=== PATIENT | female | born 1960 | race Caucasian/White ===

== ENCOUNTER 2018-03-13 11:35 | Observation (INO) | payer OTHER ==
[~2018-03-13] VITALS: Ht 170.2 cm; Wt 63.6 kg
[~2018-03-13 11:35] MED LIST: LEVO100T7 PO; LIDO5DIS10 TD; MULT-506 PO; OMEG10007 PO; PREG200C PO; RSTOPS OP; SERT-234 PO; TRAM-10 PO
[2018-03-13 12:25] LABS: BASO % 0.1 %; BASO ABS # 0.01 K/uL (0-0.2); EOS % 0.2 %; EOS ABS # 0.02 K/uL (0-0.5); HEMATOCRIT 39.3 % (37-47); HEMOGLOBIN 13.1 g/dL (12.0-16.0); IG# 0.03 K/uL (0.00-0.02); LYMPH % 7.7 %; LYMPH ABS # 0.95 K/uL (1.2-3.4); MEAN CELL VOLUME 91.2 fL (80-100); MEAN CORPUSCULAR HEMOGLOBIN 30.4 pg (25-34); MEAN CORPUSCULAR HGB CONC 33.3 g/dl (32-36); MEAN PLATELET VOLUME 9.7 fL (7.4-10.4); MONO % 7.8 %; MONO ABS # 0.97 K/uL (0.11-0.59); NEUT ABS # 10.43 K/uL (1.4-6.5); PLATELET COUNT 204 K/uL (130-400); RED CELL DISTRIBUTION WIDTH SD 43.6 fL (36.4-46.3); WHITE BLOOD COUNT 12.41 K/uL (4.8-10.8)
[2018-03-13 12:48] LABS: ALBUMIN 3.8 gm/dl (3.4-5.0); CALCIUM 8.9 mg/dl (8.5-10.1); CREATININE 0.67 mg/dl (0.60-1.20); POTASSIUM 3.8 mmol/L (3.5-5.1); TOTAL PROTEIN 7.3 gm/dl (6.4-8.2)
[2018-03-13] MEDS ORDERED: [UNRECOGNIZED DRUG - OTHER] OP (12:55)
[2018-03-13] MEDS ORDERED: RTNACR2515 TOP (12:55)
[2018-03-13] MEDS ORDERED: TIZA4CAP PO (12:55)
[2018-03-13] MEDS ORDERED: IMD/2 PO (12:55)
[2018-03-13] MEDS ORDERED: CYCL10TA6 PO (12:55)
[2018-03-13] MEDS ORDERED: ALPR-411 PO (12:55)
[2018-03-13] MEDS ORDERED: LDDP5 TD (12:55)
[2018-03-13] MEDS ORDERED: TRAM-10 PO (12:55)
[2018-03-13] MEDS ORDERED: CYCL0.052 OP (12:55)
[2018-03-13] MEDS ORDERED: DULO60CA44 PO (12:55)
[2018-03-13] MEDS ORDERED: LEVO75TA5 PO (12:55)
[2018-03-13] MEDS ORDERED: PREG200C PO (12:55)
[2018-03-13] MEDS ORDERED: SUCR1TAB29 PO (12:55)
[2018-03-13] MEDS ORDERED: ALBU18002 INH (12:55)
[2018-03-13] MEDS ORDERED: EFIN1SOL TOP (12:55)
[2018-03-13] MEDS ORDERED: METH500T3 PO (12:55)
[2018-03-13] MEDS ORDERED: ONDANSETRON INJ 2 MG/ML 2 ML VIAL IV STA ×2 (13:05→14:33)
[2018-03-13] MEDS ORDERED: SODIUM CHLORIDE 0.9% 1000ML 1,000 ML IV STA ×2 (13:05→17:05)
[2018-03-13] MEDS ORDERED: MoRPHine SULFATE 4 MG/ML 1 ML CARP\\VIAL IV STA ×3 (13:05→17:07)
[2018-03-13] MEDS ORDERED: OPTIRAY 320 IV PRN (15:00)
--- NOTE | 2018-03-13 16:23 | DIAGNOSTIC IMAGING REPORT ---
ABD/PELVIS IV AND ORAL CONT CLINICAL HISTORY: 57 years-old Female presenting with rlq pain. TECHNIQUE: Multidetector CT of the abdomen and pelvis was performed after the administration of oral and intravenous contrast. IV contrast: 114 mL of Optiray 320. A dose lowering technique was used consistent with the principles of ALARA (as low as reasonably achievable). COMPARISON: Abdomen MR from 05/13/2011. CT DOSE (mGy.cm): The estimated cumulative dose is 288.84 mGy.cm. FINDINGS: Sack Sorter topogram: Unremarkable. Lung bases: Minimal basilar opacities, likely atelectasis. Trace emphysema. Few calcified granuloma. Normal heart size. No pericardial or pleural effusion. Liver: Normal morphology. No liver lesion. Patent hepatic vasculature. Biliary: No intrahepatic or extrahepatic biliary ductal dilatation. Normal gallbladder. Pancreas: Normal. Spleen: Normal. Adrenal glands: Normal. Kidneys and ureters: Normal. No hydronephrosis. Bladder: The configuration of the bladder suggests ligamentous laxity. Bladder otherwise normal. Pelvic organs: Normal. Bowel: Apparent wall thickening near the hepatic flexure (series 3 image 195). This may be due to underdistention and/or peristalsis. No surrounding inflammatory change. Mild wall thickening of the terminal ileum likely secondary to the dilated and inflamed appendix. The proximal portion of the appendix is poorly delineated. Mucosal integrity cannot be confirmed. However, no extraluminal foci of gas in this region or adjacent fluid collection. No bowel obstruction. Peritoneal cavity: No free fluid or intraperitoneal gas. Lymph nodes: No enlarged lymph nodes in the abdomen or pelvis. Vasculature: Atherosclerosis of the normal caliber abdominal aorta. IVC patent. The left gonadal vein is dilated measuring up to 8 mm with multiple prominent pelvic varices suggesting pelvic congestion physiology. Abdominal wall: Normal. Musculoskeletal: Normal. IMPRESSION: 1. Findings consistent with acute appendicitis. The proximal portion of the appendix is poorly delineated and mucosal integrity cannot be confirmed. No evidence of radha perforation or abscess. No other complication is apparent. The report will be called/faxed according to standard departmental protocol. Electronically signed by: Fritz Etienne M.D. 03/13/2018 4:22 PM Dictated Date/Time: 03/13/2018 4:12 PM
[2018-03-13] MEDS ORDERED: CEFOXITIN 2000MG/60 ML D5W IV STA (17:05)
--- NOTE | 2018-03-13 17:39 | History and Physical ---
History & Physical Date & Time of Service: Mar 13, 2018 at 17:33 Chief Complaint: Pain Rt Side,Chills,Low Grade Fever Primary Care Physician: Kelsey Diehl D.O. History of Present Illness 57-year-old female presented to the emergency department with right lower quadrant pain. Pain woke her from sleep at 4:00 this morning. Pain started in the right lower quadrant, she had associated anorexia and nausea but no vomiting. She does report some low-grade fevers and some chills. She states it feels somewhat like a ruptured ovarian cyst she had as a teenager. No personal or family history of inflammatory bowel disease. She had a colonoscopy at age 50 that was a poor prep but otherwise unremarkable, she was recommended for a follow-up colonoscopy of 55 but has not completed this. Denies any prior abdominal surgeries. She is not on any blood thinners. Past Medical/Surgical History Medical Problems: Fibromyalgia, hypothyroidism Family History No pertinent family history Social History Smoking Status: Former Smoker (Quit 12 years ago) Allergies Coded Allergies: No Known Allergies (Verified , 03/13/18) Home Medications Scheduled Albuterol Sulfate (Proair Respiclick), 2 PUFF INH QID Cyclosporine (Ophth) (Restasis), 2 DROPS OP DAILY Duloxetine Hcl (Cymbalta), 60 MG PO DAILY Efinaconazole (Jublia), 1 APPLN TOP DAILY Levothyroxine Sodium (Levothyroxine Sodium), 75 MCG PO DAILY Lidocaine (Lidocaine), 1 PATCH TD DAILY Methylcellulose (Laxative) (Citrucel), 1,000 MG PO DAILY Pregabalin (Lyrica), 400 MG PO DAILY Sucralfate (Carafate), 1-2 GM PO QID Scheduled PRN Alprazolam (Xanax), 0.5 MG PO BID PRN for Anxiety Cyclobenzaprine Hcl (Flexeril), 10 MG PO DAILY PRN for Muscle Spasms Fluorometholone (Fml), 1 APPLN OP DAILY PRN for PRN Loperamide Hcl (Imodium), 2 MG PO UD PRN for Diarrhea Tizanidine (Zanaflex), 4 MG PO Q8 PRN for Muscle Spasms Tramadol (Ultram), 50 MG PO Q6 PRN for Pain Tretinoin (Retin-A), 1 APPLN TOP UD PRN for PRN Review of Systems 10 point review of systems negative except as above Physical Exam Vital Signs Date Time Temp Pulse Resp B/P (MAP) Pulse Ox O2 Delivery O2 Flow Rate FiO2 03/13/18 17:00 37.8 88 18 115/66 97 Room Air 03/13/18 15:08 78 16 109/63 97 Room Air 03/13/18 13:19 75 16 129/67 97 Room Air 03/13/18 11:44 36.4 75 18 104/66 96 Room Air General Appearance: WD/WN, + moderate distress Head: normocephalic, atraumatic Eyes: normal inspection, PERRL, EOMI, sclerae normal ENT: normal ENT inspection, hearing grossly normal Neck: supple, no adenopathy, thyroid normal, no JVD, trachea midline Respiratory/Chest: chest non-tender, lungs clear, normal breath sounds, no respiratory distress, no accessory muscle use Cardiovascular: regular rate, rhythm, no edema, no gallop, no JVD, no murmur, normal peripheral pulses Abdomen/GI: normal bowel sounds, soft, no organomegaly, no pulsatile mass, + tenderness (Tenderness to palpation in the right lower quadrant right lower pelvis with localized guarding. 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, no motor/sensory deficits, alert, normal mood/affect, normal reflexes, oriented x 3 Skin: normal color, warm/dry, + rash Lymphatic: no adenopathy Diagnostics Laboratory Results Results Past 24 Hours Test 03/13/18 12:10 03/13/18 14:20 Range/Units White Blood Count 12.41 4.8-10.8 K/uL Red Blood Count 4.31 4.2-5.4 M/uL Hemoglobin 13.1 12.0-16.0 g/dL Hematocrit 39.3 37-47 % Mean Corpuscular Volume 91.2 80-100 fL Mean Corpuscular Hemoglobin 30.4 25-34 pg Mean Corpuscular Hemoglobin Concent 33.3 32-36 g/dl Platelet Count 204 130-400 K/uL Mean Platelet Volume 9.7 7.4-10.4 fL Neutrophils (%) (Auto) 84.0 % Lymphocytes (%) (Auto) 7.7 % Monocytes (%) (Auto) 7.8 % Eosinophils (%) (Auto) 0.2 % Basophils (%) (Auto) 0.1 % Neutrophils # (Auto) 10.43 1.4-6.5 K/uL Lymphocytes # (Auto) 0.95 1.2-3.4 K/uL Monocytes # (Auto) 0.97 0.11-0.59 K/uL Eosinophils # (Auto) 0.02 0-0.5 K/uL Basophils # (Auto) 0.01 0-0.2 K/uL RDW Standard Deviation 43.6 36.4-46.3 fL RDW Coefficient of Variation 13.0 11.5-14.5 % Immature Granulocyte % (Auto) 0.2 % Immature Granulocyte # (Auto) 0.03 0.00-0.02 K/uL Sodium Level 139 136-145 mmol/L Potassium Level 3.8 3.5-5.1 mmol/L Chloride Level 105 98-107 mmol/L Carbon Dioxide Level 28 21-32 mmol/L Anion Gap 6.0 3-11 mmol/L Blood Urea Nitrogen 18 7-18 mg/dl Creatinine 0.67 0.60-1.20 mg/dl Est Creatinine Clear Calc Drug Dose 90.1 ml/min Estimated GFR () 113.1 Estimated GFR (Non- 97.6 BUN/Creatinine Ratio 26.1 10-20 Random Glucose 119 70-99 mg/dl Calcium Level 8.9 8.5-10.1 mg/dl Total Bilirubin 0.5 0.2-1 mg/dl Aspartate Amino Transf (AST/SGOT) 17 15-37 U/L Alanine Aminotransferase (ALT/SGPT) 19 12-78 U/L Alkaline Phosphatase 74 45-117 U/L Total Protein 7.3 6.4-8.2 gm/dl Albumin 3.8 3.4-5.0 gm/dl Globulin 3.5 2.5-4.0 gm/dl Albumin/Globulin Ratio 1.1 0.9-2 Lipase 102 73-393 U/L Urine Color YELLOW Urine Appearance CLOUDY CLEAR Urine pH 8.5 4.5-7.5 Urine Specific [place] 1.011 1.000-1.030 Urine Protein NEG NEG Urine Glucose (UA) NEG NEG Urine Ketones NEG NEG Urine Occult Blood NEG NEG Urine Nitrite NEG NEG Urine Bilirubin NEG NEG Urine Urobilinogen NEG NEG Urine Leukocyte Esterase TRACE NEG Urine WBC (Auto) 1-5 0-5 /hpf Urine RBC (Auto) 0-4 0-4 /hpf Urine Hyaline Casts (Auto) 1-5 0-5 /lpf Urine Epithelial Cells (Auto) 20-30 0-5 /lpf Urine Bacteria (Auto) NEG NEG Diagnostic Radiology ABD/PELVIS IV AND ORAL CONT CLINICAL HISTORY: 57 years-old Female presenting with rlq pain. TECHNIQUE: Multidetector CT of the abdomen and pelvis was performed after the administration of oral and intravenous contrast. IV contrast: 114 mL of Optiray 320. A dose lowering technique was used consistent with the principles of ALARA (as low as reasonably achievable). COMPARISON: Abdomen MR from 05/13/2011. CT DOSE (mGy.cm): The estimated cumulative dose is 288.84 mGy.cm. FINDINGS: Server Support Technician topogram: Unremarkable. Lung bases: Minimal basilar opacities, likely atelectasis. Trace emphysema. Few calcified granuloma. Normal heart size. No pericardial or pleural effusion. Liver: Normal morphology. No liver lesion. Patent hepatic vasculature. Biliary: No intrahepatic or extrahepatic biliary ductal dilatation. Normal gallbladder. Pancreas: Normal. Spleen: Normal. Adrenal glands: Normal. Kidneys and ureters: Normal. No hydronephrosis. Bladder: The configuration of the bladder suggests ligamentous laxity. Bladder otherwise normal. Pelvic organs: Normal. Bowel: Apparent wall thickening near the hepatic flexure (series 3 image 195). This may be due to underdistention and/or peristalsis. No surrounding inflammatory change. Mild wall thickening of the terminal ileum likely secondary to the dilated and inflamed appendix. The proximal portion of the appendix is poorly delineated. Mucosal integrity cannot be confirmed. However, no extraluminal foci of gas in this region or adjacent fluid collection. No bowel obstruction. Peritoneal cavity: No free fluid or intraperitoneal gas. Lymph nodes: No enlarged lymph nodes in the abdomen or pelvis. Vasculature: Atherosclerosis of the normal caliber abdominal aorta. IVC patent. The left gonadal vein is dilated measuring up to 8 mm with multiple prominent pelvic varices suggesting pelvic congestion physiology. Abdominal wall: Normal. Musculoskeletal: Normal. IMPRESSION: 1. Findings consistent with acute appendicitis. The proximal portion of the appendix is poorly delineated and mucosal integrity cannot be confirmed. No evidence of radha perforation or abscess. No other complication is apparent. The report will be called/faxed according to standard departmental protocol. Impression Assessment and Plan (1) Acute appendicitis with localized peritonitis 57-year-old female with acute appendicitis and localized peritonitis. No evidence of perforation at this time. We discussed her options, and she elects to proceed with surgery. Plan for laparoscopic appendectomy Risks of the procedure were discussed to include but are not limited to bleeding , infection, conversion to open, need for future more extensive surgery, damage to surrounding structures, normal appendix, and the risks of anesthesia Mefoxin preop Admit for observation to [facility] postop Resuscitation Status VTE Prophylaxis Will order VTE Prophylaxis: Yes Reason for no VTE drug order: Treatment not indicated
[2018-03-13] MEDS ORDERED: BUPIVACAINE 0.5 % 5 MG/1 ML PF 10ML VIAL ONE (17:41)
[2018-03-13] MEDS ORDERED: FENTANYL CITRATE INJ 50 MCG/1 ML 2 ML VIAL ONE (17:54)
[2018-03-13] MEDS ORDERED: MIDAZOLAM HCL 1 MG/ML 2ML VIAL ONE (17:54)
[2018-03-13] MEDS ORDERED: DEXAMETHASONE SOD INJ 4 MG/ML VIAL ONE (17:56)
[2018-03-13] MEDS ORDERED: ROCURONIUM BROMIDE 10 MG/ML 5 ML VIAL ONE (17:56)
[2018-03-13] MEDS ORDERED: LARYING-O-JET KIT (LTA) ONE (17:56)
[2018-03-13] MEDS ORDERED: GLYCOPYRROLATE INJ 0.2 MG/ML VIAL ONE (17:56)
[2018-03-13] MEDS ORDERED: NEOSTIGMINE METHYLSULFATE 5 MG/5 ML SYR ONE (17:56)
[2018-03-13] MEDS ORDERED: PROPOFOL IV EMULSION 10 MG/ML 20 ML VIAL ONE (17:56)
[2018-03-13] MEDS ORDERED: ONDANSETRON INJ 2 MG/ML 2 ML VIAL ONE (17:56)
[2018-03-13] MEDS ORDERED: LIDOCAINE HCL 2% 2 ML VIAL (20MG/ML) ONE (17:56)
[2018-03-13] MEDS ORDERED: ONDANSETRON INJ 2 MG/ML 2 ML VIAL IV PRN ×2 (18:15→19:15)
[2018-03-13] MEDS ORDERED: HYDROmorphone INJ 1 MG/ML SYR IV PRN (18:15)
[2018-03-13] MEDS ORDERED: ATROPINE SULFATE 0.1 MG/ML 5ML SYR IV PRN (18:15)
[2018-03-13] MEDS ORDERED: EpHEDrine SULFATE INJ 50 MG/ML AMP IV PRN (18:15)
[2018-03-13] MEDS ORDERED: ACETAMINOPHEN 1000 MG/100 ML IV IV ONE (18:23)
[2018-03-13] MEDS ORDERED: SUCCINYLCHOLINE CHLORIDE 20 MG/ML 10 ML VIAL IV ONE (18:41)
--- NOTE | 2018-03-13 19:04 | [facility] Post Operative Brief Note ---
Immediate Operative Summary Operative Date Mar 13, 2018. Pre-Operative Diagnosis Acute Appendicitis Post-Operative Diagnosis Acute Appendicitis Procedure(s) Performed Laparoscopic Appendectomy Surgeon Dr. Ying Web Merchant Surgeon(s) None Estimated Blood Loss 3cc Findings Consistent with Post-Op Diagnosis Acute, nonperforated, suppurative appendicitis Specimens A. Appendix Drains None Anesthesia Type General Complication(s) none Disposition Accompanied Pt To Recover: no Disposition: Recovery Room / PACU
--- NOTE | 2018-03-13 19:06 | [facility] Operative Report ---
Operative Report Operative Date Mar 13, 2018. Pre-Operative Diagnosis Acute Appendicitis Post-Operative Diagnosis Acute appendicitis Procedure(s) Performed Laparoscopic appendectomy Surgeon Dr. Ying Shot Peen Operator Surgeon(s) None Estimated Blood Loss 3cc Findings Acute, postoperative, nonperforated appendicitis Specimens A. Appendix Drains None Anesthesia General Complication(s) None Disposition Recovery Room / PACU Indications 57-year-old female presented with signs and symptoms of appendicitis, confirmed by CT scan. Plan for laparoscopic appendectomy. The risks of the procedure were discussed, all questions were answered, and the patient agreed to proceed with surgery as planned. Description of Procedure The patient was properly identified, consented, and taken to the operating room where she was placed in the supine position. General endotracheal anesthesia was induced. SCDs and a safety belt were placed. Preoperative antibiotics were administered. A Flores catheter was not placed. The patient's abdomen was prepped and draped in the standard sterile fashion. Surgical timeout was performed and all parties were in agreement that this was the correct patient and procedure to be performed and we continued as planned. A curvilinear infraumbilical incision was made with electrocautery and deepened down to the fascia with blunt dissection. The base of the umbilicus was grasped with a Alexandra and elevated towards the ceiling. An incision was made in the midline fascia with a knife and entry into the peritoneum was confirmed. Stay suture of 0 Vicryl was placed and a Sotelo trocar was inserted. The abdomen was insufflated with carbon dioxide which the patient tolerated without incident. The laparoscope was inserted and no damage from initial trocar placement was noted, no gross abnormalities were noted within the 4 quadrants the abdomen. 5 mm ports were then placed in the left lower quadrant with care not to damage the epigastric vessels, and in the suprapubic midline with care not to damage the bladder. The patient was placed in Trendelenburg position and rotated towards the left. The small bowel was swept away from the right lower quadrant. The cecum and right colon were adherent to the abdominal wall. The base of the cecum was grasped with an atraumatic grasper exposing the appendix. The appendix was moderately inflamed and there was no evidence of perforation. There was a small amount of turbid fluid in the pelvis which was suctioned at the conclusion of the case. A window was created between the base of the appendix and the mesoappendix. A canseco loaded endoscopic stapler was then used to divide the appendix at its base. A canseco load was then used to divide the mesoappendix. Hemostasis was good. The appendix was placed in an Endo Catch bag and removed through the umbilical port site. The right lower quadrant and pelvis was irrigated and hemostasis was found to be good. 5 mm trochars were removed under direct visualization and the abdomen was allowed to collapse. The umbilical port site fascia was closed with 0 Vicryl suture. The wound was irrigated, and the skin of all ports was closed with 4-0 Monocryl subcuticular sutures. Dermabond was placed over the wounds. The patient was extubated in the operating room and taken to the PACU where she recovered without apparent incident. All sponge, instrument and needle counts were correct at the conclusion of the procedure. The patient tolerated the procedure well. I attest to the content of the Intraoperative Record and any orders documented therein. Any exceptions are noted below.
[2018-03-13] MEDS ORDERED: CYCLOBENZAPRINE HCL 10 MG TAB PO PRN (19:15)
[2018-03-13] MEDS ORDERED: OXYCODONE/ACETAMINOPHEN 5-325 TAB PO PRN ×2 (19:15)
[2018-03-13] MEDS ORDERED: MoRPHine SULFATE 2 MG/ML CARP IV PRN (19:15)
[2018-03-13] MEDS ORDERED: ALPRAZOLAM 0.5 MG TAB PO PRN (19:15)
[2018-03-13] MEDS ORDERED: LOPERAMIDE HCL 2 MG CAP PO PRN (19:15)
[2018-03-13] MEDS: FENTANYL CITRATE INJ 50 MCG/1 ML 2 ML VIAL IV PRN ×4 (19:18→19:38)
--- NOTE | 2018-03-13 19:47 | Anesthesiology Progress Note ---
Anesthesia Post Op Note Date & Time Mar 13, 2018 at 19:47 Vital Signs Pain Intensity: 2 Vital Signs Past 12 Hours Date Time Temp Pulse Resp B/P (MAP) Pulse Ox O2 Delivery O2 Flow Rate FiO2 03/13/18 19:39 81 16 97 03/13/18 19:39 82 16 03/13/18 19:37 104/58 03/13/18 19:34 88 18 94 03/13/18 19:34 87 18 03/13/18 19:33 85 14 03/13/18 19:33 85 14 95 03/13/18 19:32 112/59 03/13/18 19:28 94 22 03/13/18 19:28 94 22 100 03/13/18 19:26 120/64 03/13/18 19:23 88 20 03/13/18 19:23 88 20 98 03/13/18 19:22 89 19 121/66 98 03/13/18 19:22 89 19 03/13/18 19:17 89 25 100 03/13/18 19:17 89 25 03/13/18 19:16 125/64 03/13/18 19:13 109/62 03/13/18 19:12 36.7 88 12 109/62 (82) 98 Oxymask 10 03/13/18 19:12 89 14 03/13/18 19:12 88 14 99 03/13/18 17:49 81 18 123/61 98 Room Air 03/13/18 17:00 37.8 88 18 115/66 97 Room Air 03/13/18 15:08 78 16 109/63 97 Room Air 03/13/18 13:19 75 16 129/67 97 Room Air 03/13/18 11:44 36.4 75 18 104/66 96 Room Air Notes Mental Status: alert / awake / arousable, participated in evaluation Pt Amnestic to Procedure: Yes Nausea / Vomiting: adequately controlled Pain: adequately controlled Airway Patency, RR, SpO2: stable & adequate BP & HR: stable & adequate Hydration State: stable & adequate Anesthetic Complications: no major complications apparent
[2018-03-13] MEDS ORDERED: IV FLUIDS COMPLETED PRN (20:00)
[2018-03-13 20:10] VITALS: BP 94/54; PULSE 78; TEMP 36.9; O2SAT 94
[2018-03-13 20:15] VITALS: BP 94/54; PULSE 78; TEMP 36.9; O2SAT 94
[2018-03-13 20:31] VITALS: Ht 170.2 cm; Wt 63.6 kg
[2018-03-13] MEDS: MoRPHine SULFATE 4 MG/ML 1 ML CARP\\VIAL IV PRN (21:05)
[2018-03-13 21:10] VITALS: BP 94/57; PULSE 79; TEMP 36.6; O2SAT 96
[2018-03-13] MEDS: KETOROLAC TROMETHAMINE 15 MG/ML VIAL IV SCH (22:00)
[2018-03-13] MEDS: LACTATED RINGER'S 1000ML 1,000 ML IV SCH (22:13)
[2018-03-13] MEDS: CEFOXITIN IV 2,000 MG in DEXTROSE 5% 50ML 50 ML IV SCH (22:39)
[2018-03-13 23:10] VITALS: BP_SYST 88; BP_SYST 90; BP_DIAS 55; BP_DIAS 56; PULSE 76; TEMP 36.6; O2SAT 96
--- NOTE | 2018-03-13 23:33 | Discharge Instructions ---
Discharge Instructions Date of Service Mar 13, 2018. Admission Reason for Admission: Acute Appendicitis With Localized Peritonitis Discharge Discharge Diagnosis / Problem: Acute appendicitis with localized peritonitis Discharge Goals Goal(s): Decrease discomfort, Improve function Activity Recommendations Activity Limitations: as noted below Lifting Limitations: no more than 10 pounds, until after follow-up appointment Exercise/Sports Limitations: until after follow-up appointment May Resume Sexual Activity: after follow-up appointment Shower/Bathe: tomorrow (please do not soak/scrub incisions) Driving or Machine Use: resume 3 days after discharge (Please do not drive while using narcotic pain medication) . Instructions / Follow-Up Instructions / Follow-Up You have surgical glue covering your incision sites. Please allow this to fall off on its own. Follow-up with Dr. Ying in 1-2 weeks. Please contact our office at [phone] to schedule an appointment if you have not done so already. Please contact our office with any further questions or concerns. [facility] General Surgery [address] [place] [address] Current Hospital Diet Patient's current hospital diet: Full Liquid Diet Discharge Diet Recommended Diet: Regular Diet Procedures Procedures Performed: Laparoscopic Appendectomy Pending Studies Studies pending at discharge: yes List of pending studies: pathology Medical Emergencies . Who to Call and When: Medical Emergencies: If at any time you feel your situation is an emergency, please call 911 immediately. . Non-Emergent Contact Non-Emergency issues call your: Primary Care Provider, Surgeon Call Non-Emergent contact if: you have a fever, temperature is above 101.5, your pain is not controlled, your pain is worsening, wound has increased drainage, wound has increased redness . "Provider Documentation" section prepared by Rivas Collier. . [place] Drug Monitoring Program Search Results: patient reviewed within database, no issues identified
[2018-03-14] MEDS: MoRPHine SULFATE 4 MG/ML 1 ML CARP\\VIAL IV PRN (00:15)
[2018-03-14 03:37] VITALS: BP 85/51; PULSE 68; TEMP 36.7; O2SAT 94
[2018-03-14] MEDS: KETOROLAC TROMETHAMINE 15 MG/ML VIAL IV SCH ×2 (04:00→09:29)
[2018-03-14] MEDS: CEFOXITIN IV 2,000 MG in DEXTROSE 5% 50ML 50 ML IV SCH (05:11)
[2018-03-14 05:50] VITALS: BP 90/51
[2018-03-14] MEDS ORDERED: LEVOTHYROXINE 75 MCG TAB PO SCH (06:00)
[2018-03-14] MEDS: LACTATED RINGER'S 1000ML 1,000 ML IV SCH (06:04)
[2018-03-14] MEDS ORDERED: NURSING VERBAL MED ORDER ONE (07:45)
[2018-03-14 07:57] VITALS: BP 92/58; PULSE 60; TEMP 36.2; O2SAT 96
[2018-03-14 08:48] VITALS: O2SAT 96
[2018-03-14] MEDS ORDERED: LIDODERM (LIDOCAINE) PATCH 5% TD SCH (09:00)
[2018-03-14] MEDS ORDERED: PREGABALIN 100 MG CAP PO SCH (09:00)
[2018-03-14] MEDS ORDERED: DULOXETINE HCL 60 MG CAP PO SCH (09:00)
[2018-03-14] MEDS ORDERED: OXYC-57 PO (09:20)
[2018-03-14 09:55] VITALS: BP 92/58; PULSE 60; TEMP 36.2; O2SAT 96
--- NOTE | 2018-03-14 09:58 | Surgery Progress Note ---
Surgery Progress Note Date of Service Mar 14, 2018. Subjective Post OP Day: 1 + ambulating, No bowel movement, No flatus, No nausea, No vomiting Patient ambulating on own from bathroom to bed as I entered the room. Reports that she is still having pain- surgical pain now. Objective Vital Signs: Date Time Temp Pulse Resp B/P (MAP) Pulse Ox O2 Delivery O2 Flow Rate FiO2 03/14/18 08:48 96 Room Air 03/14/18 07:57 36.2 60 18 92/58 (69) 96 Room Air 03/14/18 05:50 90/51 (64) 03/14/18 03:37 36.7 68 15 85/51 (62) 94 Room Air 03/14/18 00:00 Room Air 03/13/18 23:10 36.6 76 15 90/56 (67) 96 Room Air 88/55 (66) 03/13/18 21:10 36.6 79 16 94/57 (69) 96 Nasal Cannula 2.0 03/13/18 20:15 36.9 78 16 94/54 94 Nasal Cannula 2.0 03/13/18 20:10 94 Nasal Cannula 2.0 03/13/18 20:10 36.9 78 16 94/54 (67) 94 Nasal Cannula 2.0 03/13/18 19:58 81 20 97 03/13/18 19:58 81 20 03/13/18 19:56 96/52 03/13/18 19:53 82 18 98 03/13/18 19:53 82 18 03/13/18 19:51 102/57 03/13/18 19:48 86 19 98 03/13/18 19:48 86 19 03/13/18 19:47 89/53 03/13/18 19:45 80 13 03/13/18 19:45 78 13 97 03/13/18 19:42 37.3 90 16 101/49 (62) 97 Nasal Cannula 2 03/13/18 19:41 101/49 03/13/18 19:40 79 10 03/13/18 19:40 76 10 97 03/13/18 19:39 81 16 97 03/13/18 19:39 82 16 03/13/18 19:37 104/58 03/13/18 19:34 88 18 94 03/13/18 19:34 87 18 03/13/18 19:33 85 14 03/13/18 19:33 85 14 95 03/13/18 19:32 112/59 03/13/18 19:28 94 22 03/13/18 19:28 94 22 100 03/13/18 19:26 120/64 03/13/18 19:23 88 20 03/13/18 19:23 88 20 98 03/13/18 19:22 89 19 121/66 98 03/13/18 19:22 89 19 03/13/18 19:17 89 25 100 03/13/18 19:17 89 25 03/13/18 19:16 125/64 03/13/18 19:13 109/62 03/13/18 19:12 36.7 88 12 109/62 (82) 98 Oxymask 10 03/13/18 19:12 89 14 03/13/18 19:12 88 14 99 03/13/18 17:49 81 18 123/61 98 Room Air 03/13/18 17:00 37.8 88 18 115/66 97 Room Air 03/13/18 15:08 78 16 109/63 97 Room Air 03/13/18 13:19 75 16 129/67 97 Room Air 03/13/18 11:44 36.4 75 18 104/66 96 Room Air General Appearance: WD/WN, no apparent distress Abdomen: non distended, soft, + pertinent finding (pain in right lower abdomen - pain that brought patient to ED has resolved. Now surgical pain. ) Incision(s): clean, dry, intact, no erythema, no drainage Laboratory Results: Results Past 24 Hours Test 03/13/18 12:10 03/13/18 14:20 Range/Units White Blood Count 12.41 4.8-10.8 K/uL Red Blood Count 4.31 4.2-5.4 M/uL Hemoglobin 13.1 12.0-16.0 g/dL Hematocrit 39.3 37-47 % Mean Corpuscular Volume 91.2 80-100 fL Mean Corpuscular Hemoglobin 30.4 25-34 pg Mean Corpuscular Hemoglobin Concent 33.3 32-36 g/dl Platelet Count 204 130-400 K/uL Mean Platelet Volume 9.7 7.4-10.4 fL Neutrophils (%) (Auto) 84.0 % Lymphocytes (%) (Auto) 7.7 % Monocytes (%) (Auto) 7.8 % Eosinophils (%) (Auto) 0.2 % Basophils (%) (Auto) 0.1 % Neutrophils # (Auto) 10.43 1.4-6.5 K/uL Lymphocytes # (Auto) 0.95 1.2-3.4 K/uL Monocytes # (Auto) 0.97 0.11-0.59 K/uL Eosinophils # (Auto) 0.02 0-0.5 K/uL Basophils # (Auto) 0.01 0-0.2 K/uL RDW Standard Deviation 43.6 36.4-46.3 fL RDW Coefficient of Variation 13.0 11.5-14.5 % Immature Granulocyte % (Auto) 0.2 % Immature Granulocyte # (Auto) 0.03 0.00-0.02 K/uL Sodium Level 139 136-145 mmol/L Potassium Level 3.8 3.5-5.1 mmol/L Chloride Level 105 98-107 mmol/L Carbon Dioxide Level 28 21-32 mmol/L Anion Gap 6.0 3-11 mmol/L Blood Urea Nitrogen 18 7-18 mg/dl Creatinine 0.67 0.60-1.20 mg/dl Est Creatinine Clear Calc Drug Dose 90.1 ml/min Estimated GFR () 113.1 Estimated GFR (Non- 97.6 BUN/Creatinine Ratio 26.1 10-20 Random Glucose 119 70-99 mg/dl Calcium Level 8.9 8.5-10.1 mg/dl Total Bilirubin 0.5 0.2-1 mg/dl Aspartate Amino Transf (AST/SGOT) 17 15-37 U/L Alanine Aminotransferase (ALT/SGPT) 19 12-78 U/L Alkaline Phosphatase 74 45-117 U/L Total Protein 7.3 6.4-8.2 gm/dl Albumin 3.8 3.4-5.0 gm/dl Globulin 3.5 2.5-4.0 gm/dl Albumin/Globulin Ratio 1.1 0.9-2 Lipase 102 73-393 U/L Urine Color YELLOW Urine Appearance CLOUDY CLEAR Urine pH 8.5 4.5-7.5 Urine Specific [place] 1.011 1.000-1.030 Urine Protein NEG NEG Urine Glucose (UA) NEG NEG Urine Ketones NEG NEG Urine Occult Blood NEG NEG Urine Nitrite NEG NEG Urine Bilirubin NEG NEG Urine Urobilinogen NEG NEG Urine Leukocyte Esterase TRACE NEG Urine WBC (Auto) 1-5 0-5 /hpf Urine RBC (Auto) 0-4 0-4 /hpf Urine Hyaline Casts (Auto) 1-5 0-5 /lpf Urine Epithelial Cells (Auto) 20-30 0-5 /lpf Urine Bacteria (Auto) NEG NEG Assessment & Plan POD #1 s/p Lap Appy, non-perforated. Patient seen and examined with Dr. Ying. Patient states that she continues to have pain- surgical pain. H/O fibromyalgia and states that her pain is difficult to control sometimes. Tolerating diet- will advance to regular diet. Ambulating without difficulty. Incisions clean, dry, intact. Patient deemed ok for discharge. Return precautions provided. Patient to follow-up in clinic with Gen Surgery in 1 week.
--- NOTE | 2018-03-17 00:35 | Discharge Summary ---
Discharge Summary Date of Service Mar 17, 2018. Admission Date/Reason Mar 13, 2018 at 19:12 Acute Appendicitis With Localized Peritonitis. Discharge Date/Disposition Mar 14, 2018 Home Diagnosis Principal Diagnosis: Acute appendicitis with localized peritonitis Procedure(s) Performed laparoscopic appendectomy Medication Reconciliation Percocet 5mg/325mg 1-2 Tablets PO Q6H PRN for pain x 3 days. Disp: 24 Tablets. Admission Physical Exam As per Admitting History & Physical. Hospital Course (1) Acute appendicitis with localized peritonitis 03/13/18: Patient is a 57F who presented to the ED this evening with RLQ pain waking her up from sleep this morning at 0400. Associated nausea but no vomiting. Reports it feels similar to a ruptured ovarian cyst she had in the past. denies use of blood thinning medications. Denies previous abdominal surgeries. WBC 12.41. At this time it was decided to take patient to the OR for laparoscopic appendectomy , possible open. Pre-op antibiotics given, consents signed. The procedure was performed successfully without complications by a laparoscopic approach. The patient was then taken to the ICU for post-op recovery and then admitted to med/ surg for post-op care. 03/14/18: POD #1 s/p lap appy. Doing well, having some incisional tenderness (expected ) but pain controlled. Denies nausea, vomiting. Ambulating without issue. Urinating without issue. Patient was discharged later this morning as she has met criteria for discharge. return precautions given. Instructions on limitations and wound care provided. Patient given a prescription for Percocet to take as needed for post-op pain. Patient will follow-up with Dr. Ying in the general surgery clinic in 1-2 weeks. Patient invited to contact our office with any questions or concerns. Discharge Instructions Please refer to the electronic Patient Visit Report (Discharge Instructions) for additional information.
== END 2018-03-14 10:37 | disposition home or self-care (01) ==
LOC: C.EDB 11:37 → C.MSW 19:12 → ENRESERV 19:43
PROVIDERS: ADMIT Surgery; ATTEND Surgery
DX: K35.80 Unspecified acute appendicitis (principal); M79.7 Fibromyalgia; E03.9 Hypothyroidism, unspecified; Z87.891 Personal history of nicotine dependence; Z79.899 Other long term (current) drug therapy